=== PATIENT | male | born 1995 | race Caucasian/White ===

== ENCOUNTER 2020-12-12 10:27 | Emergency (ER) | payer OTHER ==
[~2020-12-12] VITALS: Ht 177.8 cm; Wt 72.6 kg
[2020-12-12 10:35] VITALS: Ht 177.8 cm; Wt 72.6 kg
[2020-12-12 14:58] VITALS: BP 140/85
[2020-12-13 00:03] LABS: ALBUMIN 3.8 g/dL (3.4-5.0); ALKALINE PHOSPHATASE 77 U/L (46-116); ALT/SGPT 28 U/L (16-63); AST/SGOT 27 U/L (15-37); BILIRUBIN TOTAL 0.6 mg/dL (0.20-1.00); CALCIUM 9.1 mg/dL (8.5-10.1); CARBON DIOXIDE 21.8 mmol/L (21-32); CHLORIDE SERUM 99 mmol/L (98-107); CREATININE SERUM 1.1 mg/dL (0.7-1.3); GFR1 > 60 mL/min; POTASSIUM SERUM 4.2 mmol/L (3.5-5.1); SODIUM SERUM 133 mmol/L (136-145); TOTAL PROTEIN, SERUM 6.8 g/dL (6.4-8.2)
[2020-12-13 00:16] LABS: GLUCOSE SERUM 52 mg/dL (74-106)
[2020-12-13 13:51] LABS: BASOPHIL % 0.4 % (0-2); PLATELET COUNT 209 x10^3mcL (130-400); RED CELL DISTRIBUTION WIDTH 13.5 % (11.5-14.5)
== END 2020-12-12 14:56 | disposition home or self-care (01) ==
LOC: ED 10:27
PROVIDERS: Emergency Medicine
DX: L03.113 Cellulitis of right upper limb (principal); F15.10 Other stimulant abuse, uncomplicated
CPT/HCPCS: 90715; J0696; J1885; J3370; J7040; J7050; J7060

== ENCOUNTER 2020-12-13 14:43 | Inpatient (IN) | payer OTHER ==
[~2020-12-13] VITALS: Ht 177.8 cm; Wt 73.0 kg
[2020-12-13 15:14] VITALS: Ht 177.8 cm; Wt 73.0 kg
[2020-12-13 16:39] LABS: BASOPHIL % 0.2 % (0.2-1.5); PLATELET COUNT 246 x10^3mcL (152-348); RED CELL DISTRIBUTION WIDTH 13.9 % (12.1-16.2)
[2020-12-13 17:26] LABS: UA SPECIFIC GRAVITY >=1.030 (1.005-1.035); microscopic required? YES; urine erythrocyte NEGATIVE (NEGATIVE)
[2020-12-13 17:38] LABS: CALCIUM 9.1 mg/dL (8.5-10.1); CARBON DIOXIDE 23.7 mmol/L (21-32); CHLORIDE SERUM 103 mmol/L (98-107); CREATININE SERUM 1.1 mg/dL (0.7-1.3); GFR1 > 60 mL/min; GLUCOSE SERUM 96 mg/dL (74-106); POTASSIUM SERUM 4.3 mmol/L (3.5-5.1); SODIUM SERUM 139 mmol/L (136-145)
[2020-12-13 17:43] LABS: ALT/SGPT 44 U/L (16-63); AST/SGOT 144 U/L (15-37); BILIRUBIN TOTAL 0.3 mg/dL (0.20-1.00); TOTAL PROTEIN, SERUM 6.9 g/dL (6.4-8.2)
[2020-12-13 17:49] LABS: ALBUMIN 3.1 g/dL (3.4-5.0)
[2020-12-13 18:32] LABS: ALKALINE PHOSPHATASE 178 U/L (46-116)
[2020-12-13 19:54] LABS: AMPHETAMINE QUAL UR NONE DETECTED (See below)
[2020-12-13 20:02] LABS: T3 TOTAL 0.91 ng/mL
[2020-12-13 20:25] LABS: FREE THYROXINE INDEX 1.5 ug/dL (1.4-4.5); T4(THYROXINE) 4.2 ug/dL (4.7-13.3)
[2020-12-13 20:30] LABS: CHOLESTEROL/HDL RATIO 7.2
[2020-12-14 05:38] VITALS: BP 139/99
[2020-12-14 08:27] VITALS: BP 140/90
[2020-12-14 11:54] LABS: BASOPHIL % 0.5 % (0.2-1.5); RED CELL DISTRIBUTION WIDTH 13.7 % (12.1-16.2)
[2020-12-14 11:55] LABS: PLATELET COUNT 362 x10^3mcL (152-348)
[2020-12-14 12:09] VITALS: BP 144/101
[2020-12-14 12:24] VITALS: BP 137/95
[2020-12-14 12:57] LABS: CALCIUM 8.5 mg/dL (8.5-10.1); CARBON DIOXIDE 23.7 mmol/L (21-32); CHLORIDE SERUM 99 mmol/L (98-107); CREATININE SERUM 0.9 mg/dL (0.7-1.3); GFR1 > 60 mL/min; GLUCOSE SERUM 118 mg/dL (74-106); MAGNESIUM 2.1 mg/dL (1.8-2.4); PHOSPHOROUS 4.1 mg/dL (2.5-4.9); SODIUM SERUM 130 mmol/L (136-145)
[2020-12-14 16:15] VITALS: BP 133/94
[2020-12-14 20:20] VITALS: BP 149/99
[2020-12-15 05:45] VITALS: BP 144/88
[2020-12-15 06:30] LABS: BASOPHIL % 0.5 % (0.2-1.5); RED CELL DISTRIBUTION WIDTH 13.5 % (12.1-16.2)
[2020-12-15 06:58] LABS: CALCIUM 8.1 mg/dL (8.5-10.1); CARBON DIOXIDE 22.4 mmol/L (21-32); CHLORIDE SERUM 96 mmol/L (98-107); CREATININE SERUM 0.9 mg/dL (0.7-1.3); GFR1 > 60 mL/min; GLUCOSE SERUM 111 mg/dL (74-106); MAGNESIUM 1.7 mg/dL (1.8-2.4); PHOSPHOROUS 3.5 mg/dL (2.5-4.9); POTASSIUM SERUM 5.5 mmol/L (3.5-5.1); SODIUM SERUM 127 mmol/L (136-145)
[2020-12-15 07:36] LABS: PLATELET COUNT 421 x10^3mcL (152-348)
[2020-12-15 07:47] VITALS: BP 138/96
[2020-12-15 11:48] VITALS: BP 137/95
[2020-12-15 16:40] VITALS: BP 123/86
[2020-12-15 20:21] VITALS: BP 146/108
[2020-12-16 05:00] VITALS: BP 135/95
[2020-12-16 06:35] LABS: BASOPHIL % 0.5 % (0.2-1.5); PLATELET COUNT 355 x10^3mcL (152-348)
[2020-12-16 06:39] LABS: CALCIUM 7.8 mg/dL (8.5-10.1); CARBON DIOXIDE 27.8 mmol/L (21-32); CHLORIDE SERUM 95 mmol/L (98-107); CREATININE SERUM 0.9 mg/dL (0.7-1.3); GFR1 > 60 mL/min; GLUCOSE SERUM 108 mg/dL (74-106); MAGNESIUM 2.1 mg/dL (1.8-2.4); PHOSPHOROUS 3.6 mg/dL (2.5-4.9); POTASSIUM SERUM 5.1 mmol/L (3.5-5.1); SODIUM SERUM 127 mmol/L (136-145)
[2020-12-16 07:33] VITALS: BP 143/91
[2020-12-16 11:55] VITALS: BP 142/98
[2020-12-16 15:49] VITALS: BP 137/85
[2020-12-16 20:28] VITALS: BP 143/95
[2020-12-17 03:24] VITALS: BP 129/85
[2020-12-17 06:50] LABS: BASOPHIL % 0.6 % (0.2-1.5); PLATELET COUNT 380 x10^3mcL (152-348); RED CELL DISTRIBUTION WIDTH 13.8 % (12.1-16.2)
[2020-12-17 07:21] LABS: CALCIUM 7.7 mg/dL (8.5-10.1); CARBON DIOXIDE 28.8 mmol/L (21-32); CHLORIDE SERUM 95 mmol/L (98-107); CREATININE SERUM 0.7 mg/dL (0.7-1.3); GFR1 > 60 mL/min; GLUCOSE SERUM 103 mg/dL (74-106); MAGNESIUM 2.3 mg/dL (1.8-2.4); PHOSPHOROUS 3.6 mg/dL (2.5-4.9); POTASSIUM SERUM 5.3 mmol/L (3.5-5.1); SODIUM SERUM 125 mmol/L (136-145)
[2020-12-17 08:34] VITALS: BP 133/83
[2020-12-17 13:16] VITALS: BP 118/80
[2020-12-17 16:22] VITALS: BP 138/79
[2020-12-17 21:34] VITALS: BP 132/80
[2020-12-18 05:26] VITALS: BP 128/75
[2020-12-18 06:35] LABS: BASOPHIL % 0.6 % (0.2-1.5); PLATELET COUNT 319 x10^3mcL (152-348); RED CELL DISTRIBUTION WIDTH 13.8 % (12.1-16.2)
[2020-12-18 06:43] LABS: CALCIUM 7.2 mg/dL (8.5-10.1); CARBON DIOXIDE 27.9 mmol/L (21-32); CHLORIDE SERUM 94 mmol/L (98-107); CREATININE SERUM 0.8 mg/dL (0.7-1.3); GFR1 > 60 mL/min; GLUCOSE SERUM 89 mg/dL (74-106); POTASSIUM SERUM 4.6 mmol/L (3.5-5.1); SODIUM SERUM 125 mmol/L (136-145)
[2020-12-18 09:01] VITALS: BP 126/79
[2020-12-18 13:39] VITALS: BP 128/71
[2020-12-18 17:06] VITALS: BP 129/85
[2020-12-19 04:35] VITALS: BP 123/68
[2020-12-19 06:47] LABS: CALCIUM 7.3 mg/dL (8.5-10.1); CARBON DIOXIDE 28.1 mmol/L (21-32); CHLORIDE SERUM 92 mmol/L (98-107); CREATININE SERUM 0.8 mg/dL (0.7-1.3); GFR1 > 60 mL/min; GLUCOSE SERUM 163 mg/dL (74-106); POTASSIUM SERUM 5.4 mmol/L (3.5-5.1); SODIUM SERUM 126 mmol/L (136-145)
[2020-12-19 06:54] LABS: MAGNESIUM 1.9 mg/dL (1.8-2.4); PHOSPHOROUS 3.7 mg/dL (2.5-4.9)
[2020-12-19 08:20] LABS: PLATELET COUNT 371 x10^3mcL (152-348); RED CELL DISTRIBUTION WIDTH 13.8 % (12.1-16.2)
[2020-12-19 08:33] VITALS: BP 112/72
[2020-12-19 10:04] LABS: SEGMENTED NEUTROPHILS 93 % (37-75)
[2020-12-19 10:05] LABS: MONOCYTE 3 % (0-7); rbc morphology (normal/abnorm) NORMAL (NORMAL)
[2020-12-19 11:52] VITALS: BP 132/81
[2020-12-19 16:57] VITALS: BP 131/70
[2020-12-19 19:39] VITALS: BP 123/69
[2020-12-19 22:14] VITALS: BP 135/68
[2020-12-20 06:33] VITALS: BP 118/70
[2020-12-20 06:37] LABS: CALCIUM 7.6 mg/dL (8.5-10.1); CARBON DIOXIDE 33.1 mmol/L (21-32); CHLORIDE SERUM 96 mmol/L (98-107); CREATININE SERUM 0.7 mg/dL (0.7-1.3); GFR1 > 60 mL/min; GLUCOSE SERUM 98 mg/dL (74-106); MAGNESIUM 2.3 mg/dL (1.8-2.4); PHOSPHOROUS 2.3 mg/dL (2.5-4.9); POTASSIUM SERUM 3.9 mmol/L (3.5-5.1); SODIUM SERUM 131 mmol/L (136-145)
[2020-12-20 07:00] LABS: BASOPHIL % 0.6 % (0.2-1.5); PLATELET COUNT 325 x10^3mcL (152-348); RED CELL DISTRIBUTION WIDTH 13.8 % (12.1-16.2)
[2020-12-20 08:06] VITALS: BP 127/69
[2020-12-20 12:00] VITALS: BP 115/64
[2020-12-20 20:34] VITALS: BP 111/57
[2020-12-20 21:37] VITALS: BP 158/85
[2020-12-21 07:44] LABS: BASOPHIL % 0.7 % (0.2-1.5); PLATELET COUNT 288 x10^3mcL (152-348); RED CELL DISTRIBUTION WIDTH 14.1 % (12.1-16.2)
[2020-12-21 07:50] VITALS: BP 147/71
[2020-12-21 08:04] LABS: CALCIUM 7.4 mg/dL (8.5-10.1); CARBON DIOXIDE 32.3 mmol/L (21-32); CHLORIDE SERUM 93 mmol/L (98-107); CREATININE SERUM 0.7 mg/dL (0.7-1.3); GFR1 > 60 mL/min; GLUCOSE SERUM 96 mg/dL (74-106); MAGNESIUM 2.1 mg/dL (1.8-2.4); PHOSPHOROUS 3.3 mg/dL (2.5-4.9); POTASSIUM SERUM 3.7 mmol/L (3.5-5.1); SODIUM SERUM 128 mmol/L (136-145)
[2020-12-21 12:20] VITALS: BP 153/78
[2020-12-21 16:01] VITALS: BP 100/68
[2020-12-21 20:22] VITALS: BP 152/71
[2020-12-22] VITALS (7 sets, daily range): BP systolic 105–143; BP diastolic 56–76
[2020-12-22 06:48] LABS: CALCIUM 7.3 mg/dL (8.5-10.1); CARBON DIOXIDE 33.5 mmol/L (21-32); CHLORIDE SERUM 94 mmol/L (98-107); CREATININE SERUM 0.6 mg/dL (0.7-1.3); GFR1 > 60 mL/min; GLUCOSE SERUM 89 mg/dL (74-106); PHOSPHOROUS 2.9 mg/dL (2.5-4.9); POTASSIUM SERUM 3.8 mmol/L (3.5-5.1); SODIUM SERUM 129 mmol/L (136-145)
[2020-12-22 07:12] LABS: RED CELL DISTRIBUTION WIDTH 13.9 % (12.1-16.2)
[2020-12-22 07:15] LABS: BASOPHIL % 0.5 % (0.2-1.5)
[2020-12-22 08:08] LABS: PLATELET COUNT 466 x10^3mcL (152-348)
[2020-12-22 10:27] LABS: rbc morphology (normal/abnorm) ABNORMAL (NORMAL)
[2020-12-23 05:17] VITALS: BP 147/83
[2020-12-23 06:24] LABS: BASOPHIL % 0.5 % (0.2-1.5); RED CELL DISTRIBUTION WIDTH 14.2 % (12.1-16.2)
[2020-12-23 06:40] LABS: CALCIUM 7.9 mg/dL (8.5-10.1); CARBON DIOXIDE 30.8 mmol/L (21-32); CHLORIDE SERUM 101 mmol/L (98-107); CREATININE SERUM 0.7 mg/dL (0.7-1.3); GFR1 > 60 mL/min; GLUCOSE SERUM 85 mg/dL (74-106); PHOSPHOROUS 2.7 mg/dL (2.5-4.9); POTASSIUM SERUM 4.3 mmol/L (3.5-5.1); SODIUM SERUM 135 mmol/L (136-145)
[2020-12-23 07:30] LABS: PLATELET COUNT 498 x10^3mcL (152-348)
[2020-12-23 07:40] VITALS: BP 118/86
[2020-12-23 11:26] VITALS: BP 140/83
[2020-12-23 13:46] VITALS: BP 140/83
[2020-12-23] MEDS ORDERED: AUG500 PO (16:11)
[2020-12-23] MEDS ORDERED: IBU600 M2 PO (16:11)
[2020-12-23] MEDS ORDERED: BACTRIM DS1 TAB PO (16:11)
[2020-12-23 16:37] VITALS: BP 128/76
[2020-12-23 21:06] VITALS: BP 158/76
[2020-12-24 05:26] VITALS: BP 136/76
[2020-12-24 06:04] LABS: CALCIUM 7.6 mg/dL (8.5-10.1); CHLORIDE SERUM 100 mmol/L (98-107); CREATININE SERUM 0.7 mg/dL (0.7-1.3); GFR1 > 60 mL/min; GLUCOSE SERUM 102 mg/dL (74-106); MAGNESIUM 1.8 mg/dL (1.8-2.4); PHOSPHOROUS 3.2 mg/dL (2.5-4.9); POTASSIUM SERUM 4.2 mmol/L (3.5-5.1); SODIUM SERUM 136 mmol/L (136-145)
[2020-12-24 06:13] LABS: BASOPHIL % 0.5 % (0.2-1.5)
[2020-12-24 06:30] LABS: RED CELL DISTRIBUTION WIDTH 14.6 % (12.1-16.2)
[2020-12-24 07:25] LABS: PLATELET COUNT 614 x10^3mcL (152-348)
[2020-12-24 07:52] VITALS: BP 151/82
[2020-12-24] MEDS ORDERED: PER5 PO ×2 (11:05)
[2020-12-24] MEDS ORDERED: PERCOCET1 TAB PO (11:08)
[2020-12-24 11:26] VITALS: BP 156/86
[2020-12-24 16:45] VITALS: BP 155/75
[2020-12-24 20:08] VITALS: BP 148/76
[2020-12-25 05:29] VITALS: BP 160/86
[2020-12-25 05:54] LABS: BASOPHIL % 0.8 % (0.2-1.5); RED CELL DISTRIBUTION WIDTH 14.5 % (12.1-16.2)
[2020-12-25 06:15] LABS: CALCIUM 8.8 mg/dL (8.5-10.1); CARBON DIOXIDE 28.6 mmol/L (21-32); CHLORIDE SERUM 101 mmol/L (98-107); CREATININE SERUM 0.6 mg/dL (0.7-1.3); GFR1 > 60 mL/min; GLUCOSE SERUM 86 mg/dL (74-106); PHOSPHOROUS 3.7 mg/dL (2.5-4.9); POTASSIUM SERUM 4.3 mmol/L (3.5-5.1); SODIUM SERUM 135 mmol/L (136-145)
[2020-12-25 07:53] LABS: PLATELET COUNT 704 x10^3mcL (152-348)
[2020-12-25 07:59] VITALS: BP 143/85
[2020-12-25 11:54] VITALS: BP 134/89
[2020-12-25 16:03] VITALS: BP 128/82
[2020-12-25 19:59] VITALS: BP 137/64
[2020-12-26 06:10] VITALS: BP 138/79
[2020-12-26 06:46] LABS: BASOPHIL % 1.1 % (0.2-1.5)
[2020-12-26 06:48] LABS: RED CELL DISTRIBUTION WIDTH 14.5 % (12.1-16.2)
[2020-12-26 06:56] LABS: CALCIUM 8.8 mg/dL (8.5-10.1); CARBON DIOXIDE 29.5 mmol/L (21-32); CHLORIDE SERUM 100 mmol/L (98-107); CREATININE SERUM 0.7 mg/dL (0.7-1.3); GFR1 > 60 mL/min; GLUCOSE SERUM 94 mg/dL (74-106); MAGNESIUM 1.9 mg/dL (1.8-2.4); PHOSPHOROUS 3.7 mg/dL (2.5-4.9); SODIUM SERUM 135 mmol/L (136-145)
[2020-12-26 07:31] LABS: PLATELET COUNT 816 x10^3mcL (152-348)
[2020-12-26 08:04] VITALS: BP 159/93
[2020-12-26 16:07] VITALS: BP 146/75
[2020-12-26 20:35] VITALS: BP 122/64
[2020-12-27 04:58] VITALS: BP 135/71
[2020-12-27 08:19] VITALS: BP 136/86
[2020-12-27 12:21] VITALS: BP 136/70
[2020-12-27 15:41] VITALS: BP 136/70
== END 2020-12-27 16:52 | disposition home health service (06) | DRG 710 ==
LOC: ED 14:43 → DU 18:39
PROVIDERS: Emergency Medicine; Internal Medicine; ADMIT Family Medicine; ATTEND Family Medicine
PROC: 0JBJ0ZZ Excision of Right Hand Subcutaneous Tissue and Fascia, Open Approach (ICD-10-PCS; 2020-12-18)
PROC: 0JBJ0ZZ Excision of Right Hand Subcutaneous Tissue and Fascia, Open Approach (ICD-10-PCS; 2020-12-20)
PROC: 30233N1 Transfusion of Nonautologous Red Blood Cells into Peripheral Vein, Percutaneous Approach (ICD-10-PCS; principal; 2020-12-22)
DX: A41.9 Sepsis, unspecified organism (principal); M72.6 Necrotizing fasciitis; E44.1 Mild protein-calorie malnutrition; D62 Acute posthemorrhagic anemia; D75.1 Secondary polycythemia; L03.113 Cellulitis of right upper limb; R74.01 Elevation of levels of liver transaminase levels; F15.10 Other stimulant abuse, uncomplicated; Z20.822 Contact with and (suspected) exposure to COVID-19; Z60.2 Problems related to living alone; Z68.23 Body mass index [BMI] 23.0-23.9, adult
CPT/HCPCS: 84439; 90714; G0378; J0131; J0330; J0690; J1170; J1940; J2001; J2250; J2270; J2405; J2543; J2704; J2710; J3010; J3370; J3490; J7030; J7040; J7050; J7120; P9016; Q0163